=== PATIENT | female | born 1990 | race African-American/Black ===

== ENCOUNTER → 2017-08-04 | Day surgery (SDC) | payer OTHER ==
[~2017-08-04] MED LIST: ACETAMINOPHEN 650 MG SUPP As Ordered; ACETAMINOPHEN 650 MG SUPP PR; BUPIVACAINE HCL 0.5% 30 ML VIAL As Ordered; KETOROLAC 60 MG/2 ML VIAL (J1885) As Ordered; METHYLENE BLUE 0.5% (5MG/ML) 10 ML AMP (PROVAYBLUE)(Q9968 PER 1MG) As Ordered; MIDAZOLAM INJ 2 MG/2 ML VIAL (J2250) As Ordered; NS 1,000 ML IV; ONDANSETRON 4MG/2ML VIAL (J2405) As Ordered; PROPOFOL 200 MG/20 ML VIAL As Ordered; dexameTHASONE 4 MG/ML 1ML VIAL (J1100) As Ordered; fentaNYL 100 MCG/2 ML INJECTION (J3010) As Ordered
[2017-08-04 12:45] LABS: HEMOGLOBIN 12.6 g/dl (12.0-16.0); MEAN CORPUSCULAR HEMOGLOBIN 29.6 pg (27.0-33.0); MEAN CORPUSCULAR VOLUME 84.7 fl (80.0-96.0); PLATELET COUNT, AUTOMATED 227 10^3/uL (150-450); RED BLOOD COUNT 4.25 10^6/uL (4.00-5.40); RED CELL DISTRIBUTION WIDTH 12.5 % (11.5-14.5); WHITE BLOOD COUNT 6.7 10^3/uL (4.0-10.0)
[2017-08-04 13:13] LABS: ANION GAP 6 MEQ/L (8-16); BLOOD UREA NITROGEN 9 MG/DL (7-18); CALCIUM LEVEL 8.4 MG/DL (8.5-10.1); CARBON DIOXIDE LEVEL 27 MEQ/L (21-32); CHLORIDE LEVEL 107 MEQ/L (98-107); CREATININE FOR GFR 0.63 MG/DL (0.55-1.30); GLOMERULAR FILTRATION RATE > 60.0 (>60); GLUCOSE, FASTING 94 MG/DL (70-100); HCG, SERUM QUANTITATIVE < 1.0 MIU/ML; SODIUM LEVEL 140 MEQ/L (136-145)
== END | disposition home or self-care (01) ==
LOC: M SDC 12:22
DX: N97.9 Female infertility, unspecified (principal); Z53.9 Procedure and treatment not carried out, unspecified reason
CPT/HCPCS: 84702

== ENCOUNTER 2017-08-18 10:09 | Day surgery (SDC) | payer OTHER ==
[2017-08-18 10:03] LABS: HEMATOCRIT 36.5 % (36.0-47.0); HEMOGLOBIN 12.8 g/dl (12.0-16.0); MEAN CORPUSCULAR HEMOGLOBIN 29.4 pg (27.0-33.0); MEAN CORPUSCULAR HGB CONC 35.1 g/dl (32.0-36.5); MEAN CORPUSCULAR VOLUME 83.7 fl (80.0-96.0); PLATELET COUNT, AUTOMATED 226 10^3/uL (150-450); RED BLOOD COUNT 4.36 10^6/uL (4.00-5.40); RED CELL DISTRIBUTION WIDTH 12.4 % (11.5-14.5); WHITE BLOOD COUNT 4.5 10^3/uL (4.0-10.0)
[~2017-08-18 10:09] MED LIST changes: -ACETAMINOPHEN 650 MG SUPP As Ordered; -ACETAMINOPHEN 650 MG SUPP PR; -BUPIVACAINE HCL 0.5% 30 ML VIAL As Ordered; +LIDOCAINE 1% MDV 20ML VIAL SQ; +LIDOCAINE 2% INJ 100 MG/5 ML SDV (FOR ANES.) As Ordered; -METHYLENE BLUE 0.5% (5MG/ML) 10 ML AMP (PROVAYBLUE)(Q9968 PER 1MG) As Ordered; -MIDAZOLAM INJ 2 MG/2 ML VIAL (J2250) As Ordered; -NS 1,000 ML IV; +ROCURONIUM BROMIDE 50 MG/5 ML VIAL As Ordered; -fentaNYL 100 MCG/2 ML INJECTION (J3010) As Ordered
[2017-08-18] MEDS: LR 1,000 ML IV (10:29)
[2017-08-18 10:33] LABS: ANION GAP 3 MEQ/L (8-16); BLOOD UREA NITROGEN 11 MG/DL (7-18); CALCIUM LEVEL 8.6 MG/DL (8.5-10.1); CARBON DIOXIDE LEVEL 30 MEQ/L (21-32); CHLORIDE LEVEL 107 MEQ/L (98-107); CREATININE FOR GFR 0.72 MG/DL (0.55-1.30); GLOMERULAR FILTRATION RATE > 60.0 (>60); GLUCOSE, FASTING 82 MG/DL (70-100); HCG, SERUM QUANTITATIVE < 1.0 MIU/ML; SODIUM LEVEL 140 MEQ/L (136-145)
[2017-08-18] MEDS: ACETAMINOPHEN 650 MG SUPP As Ordered (11:19)
[2017-08-18] MEDS: BUPIVACAINE HCL 0.25% 10 ML VIAL As Ordered (11:25)
[2017-08-18] MEDS: METHYLENE BLUE 0.5% (5MG/ML) 10 ML AMP (PROVAYBLUE)(Q9968 PER 1MG) As Ordered (11:25)
[2017-08-18] MEDS ORDERED: NEOSTIGMINE 10 MG/10 ML VIAL (J2710) As Ordered (11:35)
[2017-08-18] MEDS ORDERED: fentaNYL 250 MCG/5 ML INJECTION (J3010) As Ordered (11:35)
[2017-08-18] MEDS ORDERED: GLYCOPYRROLATE INJ 0.2 MG/ML 2 ML VIAL As Ordered ×2 (11:35)
[2017-08-18] MEDS ORDERED: MIDAZOLAM INJ 2 MG/2 ML VIAL (J2250) As Ordered (11:35)
[2017-08-18] MEDS ORDERED: KETOROLAC 30 MG/ML VIAL (J1885) IV (12:00)
[2017-08-18] MEDS ORDERED: ONDANSETRON 4MG/2ML VIAL (J2405) IV (12:15)
[2017-08-18] MEDS ORDERED: NORCO, ANEXSIA 5/325MG TABLET (HYDROcodone/ACETAMINOPHEN) PO (12:15)
[2017-08-18] MEDS ORDERED: LR 1,000 ML IV (12:15)
[2017-08-18] MEDS ORDERED: fentaNYL 100 MCG/2 ML INJECTION (J3010) IV (12:15)
== END 2017-08-18 15:00 | disposition home or self-care (01) ==
LOC: M SDC 15:00
DX: N85.8 Other specified noninflammatory disorders of uterus (principal); N97.9 Female infertility, unspecified; M41.9 Scoliosis, unspecified
CPT/HCPCS: 49320

== ENCOUNTER 2018-04-18 09:43 | Emergency (ER) | payer OTHER | END 2018-04-18 10:32 | disposition home or self-care (01) | LOC: M ED 09:43 | DX: O26.891 Other specified pregnancy related conditions, first trimester (principal); R51 Headache; O99.351 Diseases of the nervous system complicating pregnancy, first trimester; G47.33 Obstructive sleep apnea (adult) (pediatric); Z3A.00 Weeks of gestation of pregnancy not specified | CPT/HCPCS: 81025 ==

== ENCOUNTER 2019-04-10 14:47 | Emergency (ER) | payer OTHER ==
[~2019-04-10] VITALS: Ht 165.1 cm; Wt 79.1 kg
[~2019-04-10 14:47] MED LIST changes: +CENTCHW4 PO; +COLA100C5 PO; +FOLI400T PO; +IBUP80TA PO; -KETOROLAC 60 MG/2 ML VIAL (J1885) As Ordered; -LIDOCAINE 1% MDV 20ML VIAL SQ; -LIDOCAINE 2% INJ 100 MG/5 ML SDV (FOR ANES.) As Ordered; +NO MEDICATIONS; -ONDANSETRON 4MG/2ML VIAL (J2405) As Ordered; +PERCOCET PO; -PROPOFOL 200 MG/20 ML VIAL As Ordered; -ROCURONIUM BROMIDE 50 MG/5 ML VIAL As Ordered; -dexameTHASONE 4 MG/ML 1ML VIAL (J1100) As Ordered
[2019-04-10 17:42] VITALS: BP 118/75
[2019-04-10 18:24] LABS: CHLAMYDIA DNA AMPLIFICATION NEGATIVE (NEGATIVE); GC DNA AMPLIFICATION NEGATIVE (NEGATIVE)
== END 2019-04-10 18:09 | disposition home or self-care (01) ==
LOC: M ED 14:47
DX: L73.9 Follicular disorder, unspecified (principal)

== ENCOUNTER 2021-11-16 12:43 | Emergency (ER) | payer OTHER, BC ==
[~2021-11-16] VITALS: Ht 165.1 cm; Wt 74.9 kg
[~2021-11-16 12:43] MED LIST changes: -FOLI400T PO; +FOLI400T13 PO
[2021-11-16 13:26] LABS: HEMATOCRIT 32.9 % (36.0-47.0); HEMOGLOBIN 11.8 g/dl (12.0-15.5); MEAN CORPUSCULAR HEMOGLOBIN 29.9 pg (27.0-33.0); MEAN CORPUSCULAR HGB CONC 35.9 g/dl (32.0-36.5); MEAN CORPUSCULAR VOLUME 83.5 fl (80.0-96.0); PLATELET COUNT, AUTOMATED 197 10^3/uL (150-450); RED BLOOD COUNT 3.94 10^6/uL (4.00-5.40); WHITE BLOOD COUNT 6.3 10^3/uL (4.0-10.0)
[2021-11-16 15:10] VITALS: BP 119/63
== END 2021-11-16 15:11 | disposition home or self-care (01) ==
LOC: M ED 12:43
DX: O20.9 Hemorrhage in early pregnancy, unspecified (principal); O46.91 Antepartum hemorrhage, unspecified, first trimester; Z87.59 Personal history of other complications of pregnancy, childbirth and the puerperium; Z3A.10 10 weeks gestation of pregnancy